=== PATIENT | female | born 1940 | race Caucasian/White ===

== ENCOUNTER 2017-07-24 11:41 | Day surgery (SDC) | payer OTHER ==
[~2017-07-24] VITALS: Ht 162.6 cm; Wt 62.6 kg
[~2017-07-24 11:41] MED LIST: ALPRAZOLAM0.25 MG PO; AMILORIDE HCL5 MG PO; ASPIRIN E.C.81 M1 PO; Apresolin PO; BYSTOLIC10 MG PO; BYSTOLIC20 MG PO; CALCIUM 500 +1 EACH PO; CARDIZEM60 MG PO; CATAPRES0.1 MG PO; CATAPRES0.3 MG PO; CIPROFLOXACIN250 MG PO; CLONIDINE HCL0.2 MG PO; COZAAR100 MG PO; CYANOCOBAL1000 MCG/2 IM; Cozaar PO; K-DUR10 ME2 PO; LIPITOR40 MG PO; LOSARTAN POTAS100 MG PO; MYCOSTATIN5 ML PO; PRILOSEC OTC20 MG PO; PROTONIX40 MG PO; TOPROL XL50 MG PO; ZESTRIL,PRINIVI40 M1 PO
[2017-07-24 12:15] VITALS: BP 169/76
[2017-07-24 13:07] LABS: APPEARANCE SL.HAZY ((CLEAR)); BILIRUBIN NEGATIVE; BLOOD NEGATIVE; COLOR YELLOW ((YELLOW)); GLUCOSE (STRIP) NEGATIVE; KETONES NEGATIVE; LEUKOCYTES LARGE; NITRITE NEGATIVE; PROTEIN (STRIP) NEGATIVE; UROBILINOGEN 0.2 MG/DL (0.2-1.0)
[2017-07-24 13:08] LABS: BACTERIA RARE /HPF; EPITHELIAL CELLS RARE /HPF; MUCUS TRACE /LPF; RED BLOOD CELLS 0-5 /HPF (0-5); WHITE BLOOD CELLS TNTC /HPF (0-5)
[2017-07-24 21:00] VITALS: BP 187/84
[2017-07-24 21:39] VITALS: BP 187/84
[2017-07-24 23:58] VITALS: BP 135/64
[2017-07-25 05:30] VITALS: BP 164/74
[2017-07-25 08:24] VITALS: BP 149/69
[2017-07-25] MEDS ORDERED: HYDROMORPHONE HC2 MG PO (11:34)
[2017-07-25] MEDS ORDERED: BACTRIM,SEPT1 TABLET PO (11:34)
== END 2017-07-25 16:29 | disposition home or self-care (01) ==
LOC: SDC 11:41 → 2SOUTH 18:00 → ENRESERV 18:22 → 3EAST 21:16
PROVIDERS: Neurological Surgery
DX: M48.062 Spinal stenosis, lumbar region with neurogenic claudication (principal); M48.061 Spinal stenosis, lumbar region without neurogenic claudication; N39.0 Urinary tract infection, site not specified; I10 Essential (primary) hypertension; E78.5 Hyperlipidemia, unspecified; J45.909 Unspecified asthma, uncomplicated; Z79.82 Long term (current) use of aspirin
CPT/HCPCS: 72020; 76000; 81003; G0378; J0131; J0360; J0690; J1100; J2175; J2250; J2405; J2710; J3010; J3480; Q0175; S0020